=== PATIENT | female | born 1985 | race Asian ===

== ENCOUNTER → 2020-10-02 15:52 | Outpatient (BNVA) | payer SELFPAY | PROVIDERS: Family Provider Nurse Practitioner Family; Visit Provider Internal Medicine | DX: E04.0 Nontoxic diffuse goiter (principal); L81.1 Chloasma | CPT/HCPCS: 84439; 84443 ==

== ENCOUNTER 2020-11-01 14:04 | Outpatient (CLI) | payer SELFPAY ==
--- NOTE | 2020-11-01 14:15 | US_ITS ---
WS: [id number] THYROID ULTRASOUND (TI-RADS CRITERIA) History: Thyroid nodules.. Technique: Ultrasound examination of the thyroid and adjacent soft tissues is performed. FINDINGS: Right lobe: 6.4 cm x 2.6 cm x 2.2 cm. Volume: 19.0 cm3. Enlarged thyroid with multiple nodules which are confluent. There are large predominantly solid nodul e with a few cystic components and echogenic foci throughout essentially the entire gland. NODULE: 1 Size: 1.0 x 1.7 x 2.6 cm. Location: Nearly the entire gland but centered in the inferior pole. Composition: Solid/almost completely solid (2) Echogenicity: Hypoechoic (2) Shape: Not taller than wide (0) Margins: Smooth (0) Echogenic foci: Punctate echogenic foci (3) ACR TI-RADS total points: 7 ACR TI-RADS risk category: TR5 Left lobe: 6.0 cm x 2.4 cm x 2.2 cm. Volume: 16.2 cm3. Enlarged LEFT thyroid. There is a large nodule this may be several confluent nodules which have grown together over time. NODULE: 2 Size: 1.7 x 0.9 x 1.7 cm. Location: Mid LEFT. Composition: Solid/almost completely solid (2) Echogenicity: Cannot determine (1) Shape: Not taller than wide (0) Margins: Smooth (0) Echogenic foci: Punctate echogenic foci (3) ACR TI-RADS total points: 6 ACR TI-RADS risk category: TR5 Isthmus: 0.3 cm. US/US thyroid [id number] Impression: TR5 Recommendation:Fine needle aspiration bilaterally of each confluent thyroid nod ule. As these nodules are confluent a single biopsy on each side should be suff icient targeted in the most concerning area of the nodule. These nodules have p rogressed in size since the prior study and it now more confluent.
== END 2020-11-01 14:05 | disposition home or self-care (01) ==
LOC: RAD 14:10
PROVIDERS: Visit Provider Internal Medicine
DX: E04.2 Nontoxic multinodular goiter (principal)
CPT/HCPCS: 76536

== ENCOUNTER 2020-12-13 07:57 | Outpatient (CLI) | payer SELFPAY ==
--- NOTE | 2020-12-13 08:00 | US_ITS ---
WS: [id number] ULTRASOUND-GUIDED BILATERAL THYROID NODULE FNAs HISTORY: E04.1 - Nontoxic single thyroid nodule, enlarging nodules in each gland. Procedure, risks, and complications were explained to the patient. Consent has been obtained. Comparison: 11/01/2020 and 05/12/2019 The skin is cleansed with ChloraPrep and anesthetized with 1% buffered lidocaine. FNA performed with 25 gauge needles. The most suspicious and solid nodules in each gland are targeted. No complications were encountered. sleep lab technologist is present to fix slides. US/US biopsy thyroid [id number] IMPRESSION: Uncomplicated FNA of bilateral thyroid nodules. Final pathology results pending .
== END 2020-12-13 07:58 | disposition home or self-care (01) ==
LOC: RAD 07:59
PROVIDERS: Visit Provider Internal Medicine
DX: E04.1 Nontoxic single thyroid nodule (principal); E04.9 Nontoxic goiter, unspecified
CPT/HCPCS: 10005; 10006; 88173; 88305

== ENCOUNTER → 2022-04-29 15:25 | Outpatient (BNVA) | payer SELFPAY | PROVIDERS: Visit Provider Internal Medicine | DX: Z00.00 Encounter for general adult medical examination without abnormal findings (principal); D64.9 Anemia, unspecified; R53.83 Other fatigue; N94.6 Dysmenorrhea, unspecified; E04.0 Nontoxic diffuse goiter | CPT/HCPCS: 80053; 82607; 83550; 84443; 85025 ==

== ENCOUNTER → 2023-10-27 15:04 | Outpatient (BNVA) | payer OTHER, SELFPAY | PROVIDERS: Referring Provider Internal Medicine; Visit Provider Nurse Practitioner Women's Health | DX: Z12.4 Encounter for screening for malignant neoplasm of cervix (principal) | CPT/HCPCS: 87624 ==